=== PATIENT | male | born 1965 | race African-American/Black ===

== ENCOUNTER 2022-04-23 10:04 | Outpatient (RCR) | payer MEDICAID, OTHER | END 2022-05-03 | disposition home or self-care (01) | LOC: ONC 10:04 | PROVIDERS: ATTEND Radiology Radiation Oncology | DX: C61 Malignant neoplasm of prostate (principal); I10 Essential (primary) hypertension | CPT/HCPCS: 99204 ==

== ENCOUNTER 2022-05-09 06:11 | Outpatient (CLI) | payer MEDICAID ==
[~2022-05-09] VITALS: Ht 175.3 cm; Wt 81.4 kg
[2022-05-15] MEDS ORDERED: DIAZ10TA3 PO (09:49)
[2022-05-15] MEDS ORDERED: LACT10SO64 PO (09:49)
[2022-05-15] MEDS ORDERED: LORA-404 PO (09:49)
[2022-05-15] MEDS ORDERED: CVS GAS RELIEF PO (09:49)
[2022-05-15] MEDS ORDERED: LISI10TA25 PO (09:49)
[2022-05-15] MEDS ORDERED: CLOT45CR28 VG (09:49)
[2022-05-15] MEDS ORDERED: tylenol liquid PO (09:49)
== END 2022-05-15 14:49 | disposition home or self-care (01) ==
LOC: PREOP 06:11
PROVIDERS: ATTEND Radiology Radiation Oncology
DX: Z01.818 Encounter for other preprocedural examination (principal)

== ENCOUNTER 2022-05-16 11:32 | Day surgery (SDC) | payer MEDICAID ==
[2022-05-16] VITALS (9 sets, daily range): BP systolic 112–136; BP diastolic 73–89
[~2022-05-16] VITALS: Ht 175.3 cm; Wt 81.4 kg
[~2022-05-16 11:32] MED LIST: CLOT45CR28 VG; CVS GAS RELIEF PO; DIAZ10TA3 PO; LACT10SO64 PO; LISI10TA25 PO; LORA-404 PO; tylenol liquid PO
--- NOTE | 2022-05-16 12:01 | Progress Note-Pre Operative ---
Pre-Operative Progress Note H&P Reviewed The H&P was reviewed, patient examined and no changes noted. Date Seen by Provider: May 16, 2022 Time Seen by Provider: 12:00 Date H&P Reviewed: May 16, 2022 Time H&P Reviewed: 12:01 Pre-Operative Diagnosis: Prostate cancer cT1c, PSA 17.5, [place] 7 (3+4) VERNON MONTGOMERY MD May 16, 2022 12:01
--- NOTE | 2022-05-16 12:07 | Discharge Inst-Simple/Standard ---
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 Given oral contrast to drink 1/2 bottle at 9:30 a.m. prior to scan. Activity as Tolerated: Yes Discharge Diet: No Restrictions VERNON MONTGOMERY MD May 16, 2022 12:07
[2022-05-16] MEDS ORDERED: LACTATED RINGERS 1,000 ML IV PRN (12:30)
[2022-05-16] MEDS ORDERED: LIDOCAINE PF 2% 5 ML (XYLOCAINE) VIAL ONE (13:24)
[2022-05-16] MEDS ORDERED: MIDAZOLAM 2 MG/2 ML (VERSED) VIAL ONE (13:24)
[2022-05-16] MEDS ORDERED: fentaNYL INJ 100 MCG/2 ML AMP ONE (13:24)
[2022-05-16] MEDS ORDERED: SEVOFLURANE (ULTANE) 15 ML INHAL SOLN ONE (13:24)
[2022-05-16] MEDS ORDERED: ONDANSETRON 4 MG/2 ML (SDV) Z0FRAN ONE (13:24)
[2022-05-16] MEDS ORDERED: proPOfol 200 MG/20 ML (DIPRIVAN) VIAL IV ONE (13:24)
[2022-05-16] MEDS ORDERED: GLYCOPYRROLATE 0.2 MG/ML (ROBINUL) 2 ML VIAL ONE (14:02)
[2022-05-16] MEDS ORDERED: HYDROmorphone 2 MG/ML VIAL (DILAUDID) IV ONE (14:30)
[2022-05-16] MEDS ORDERED: ONDANSETRON 4 MG/2 ML (SDV) Z0FRAN IVP PRN (14:30)
--- NOTE | 2022-05-16 14:46 | Progress Note-Post Operative ---
Post-Operative Progess Note Surgeon (s)/Experimental Display Builder (s) Surgeon Dominique CONLEY MD Experimental Display Builder: VERNON MONTGOMERY MD Pre-Operative Diagnosis Prostate cancer cT1c, PSA 17.5, [place] 7 (3+4) Post-Operative Diagnosis Same as preop Procedure & Operative Findings Date of Procedure 05/16/22 Procedure Performed/Findings (1) Placement of fiducial gold seed markers (2) Injection of biodegradable hydrogel prostate-rectal spacer utilizing the [employer] Samuel system Anesthesia Type General Estimated Blood Loss Estimated blood loss (mL): None Specimens/Packing Specimens Removed None Packing: None VERNON MONTGOMERY MD May 16, 2022 14:46
--- NOTE | 2022-05-16 15:10 | Anesthesia-General Post-Op ---
General Patient Condition Mental Status/LOC: Same as Preop Cardiovascular: Satisfactory Nausea/Vomiting: Absent Respiratory: Satisfactory Pain: Controlled Complications: Absent Post Op Complications Complications None Follow Up Care/Instructions Patient Instructions None needed. Anesthesia/Patient Condition Patient Condition Patient is doing well, no complaints, stable vital signs, no apparent adverse anesthesia problems. No complications reported per nursing. APRIL MOONEY CRNA May 16, 2022 15:09
== END 2022-05-16 15:55 ==
LOC: SDC 11:32
PROVIDERS: ATTEND Radiology Radiation Oncology
DX: C61 Malignant neoplasm of prostate (principal)
CPT/HCPCS: 55874; 55876; 87081; C1889

== ENCOUNTER → 2022-07-04 | Outpatient (RCR) | payer MEDICAID | END | disposition home or self-care (01) | LOC: ONC 06-19 11:00 | PROVIDERS: ATTEND Radiology Radiation Oncology | DX: Z51.0 Encounter for antineoplastic radiation therapy (principal); C61 Malignant neoplasm of prostate; I10 Essential (primary) hypertension | CPT/HCPCS: 77300; 77301; 77334; 77338; 77385 ==

== ENCOUNTER → 2022-08-03 | Outpatient (RCR) | payer MEDICAID | END | disposition home or self-care (01) | LOC: ONC 07-05 10:34 | PROVIDERS: ATTEND Radiology Radiation Oncology | DX: Z51.0 Encounter for antineoplastic radiation therapy (principal); C61 Malignant neoplasm of prostate; I10 Essential (primary) hypertension | CPT/HCPCS: 77336; 77385 ==

== ENCOUNTER 2022-09-13 09:51 | Outpatient (RCR) | payer MEDICAID | END 2022-10-03 | disposition home or self-care (01) | LOC: ONC 09:51 | PROVIDERS: ATTEND Radiology Radiation Oncology | DX: C61 Malignant neoplasm of prostate (principal); Z12.5 Encounter for screening for malignant neoplasm of prostate | CPT/HCPCS: G0103; G0463; 84153; 99214 ==

== ENCOUNTER 2023-03-14 09:45 | Outpatient (RCR) | payer MEDICAID | END 2023-04-03 | disposition home or self-care (01) | LOC: ONC 09:45 | PROVIDERS: ATTEND Radiology Radiation Oncology | DX: C61 Malignant neoplasm of prostate (principal) | CPT/HCPCS: 84153; G0463; 36415; 99213 ==